=== PATIENT | female | born 1990 | race Hispanic/Latino ===

== ENCOUNTER 2017-08-05 14:09 | Inpatient (IN) | payer MEDICAID ==
--- NOTE | 2017-08-05 14:31 | ED PDOC ---
Lower Extremity Pain/Injury Time Seen by Provider: 08/05/17 14:30 Chief Complaint (Nursing): Lower Extremity Problem/Injury Chief Complaint (Provider): knee pain History Per: Patient Additional Complaint(s): 26 year old female presents to ED with severe left knee pain s/p slip and fall while skiing last Thursday in [place]. Patient was seen by Dr. Chun in his office and was diagnosed with left tibial plateau fracture. Patient presents today to ED with worsening pain to left knee. She has been ambulating with crutches. Past Medical History Reviewed: Historical Data Vital Signs: Last Vital Signs Temp 98.4 F 08/05/17 14:19 Pulse 89 08/05/17 14:19 Resp 20 08/05/17 14:19 BP 122/70 08/05/17 14:19 Pulse Ox 98 08/05/17 14:19 - Medical History PMH: No Chronic Diseases - Surgical History Other surgeries: ear surgery - Family History Family History: States: No Known Family Hx - Living Arrangements Living Arrangements: With Family - Social History Current smoker - smoking cessation education provided: No Alcohol: Social Drugs: Cocaine (last used at 8 am today) - Allergies Allergies/Adverse Reactions: Allergies Allergy/AdvReac Type Severity Reaction Status Date / Time No Known Allergies Allergy Verified 08/05/17 14:46 Wells Criteria for PE - Wells Criteria for Pulmonary Embolism Clinical Signs and Symptoms of DVT: No P.E is #1 Diagnosis, or Equally Likely: No Heart Rate >100: No Immobilization at least 3 days;Surgery previous 4 weeks: No Previous, objectively diagnosed PE or DVT: No Hemoptysis: No Malignancy w/treatment within 6 months, or palliative: No Total Score: 0 Review of Systems ROS Statement: Except As Marked, All Systems Reviewed And Found Negative Musculoskeletal: Positive for: Other (left knee pain) Physical Exam - Reviewed Nursing Documentation Reviewed: Yes Vital Signs Reviewed: Yes - Physical Exam Appears: Positive for: Well, Non-toxic, No Acute Distress Skin: Negative for: Rash Eye Exam: Positive for: Normal appearance Cardiovascular/Chest: Positive for: Regular Rate, Rhythm Respiratory: Positive for: Normal Breath Sounds Extremity: Positive for: Other (Swelling and tenderness to left patellar region with decreased range of motion of left knee, no calf swelling or tenderness, normal distal sensation left lower extremity) Neurologic/Psych: Positive for: Alert, Oriented - Laboratory Results Result Diagrams: 08/05/17 15:40 Urine POC: Negative - ECG O2 Sat by Pulse Oximetry: 98 Pulse Ox Interpretation: Normal - Other Rad Bedside chest X-Ray: Interpreted by Me, Viewed By Me X-Ray Interpretation: no acute finding Medical Decision Making Medical Decision Makin-year-old female with left tibial plateau fracture Plan: CXR EKG CBC CMP PT/PTT IVF Case was discussed with Dr. Chun, patient's orthopedist. Patient will be admitted and taken to the OR for patellar fracture repair. Patient is aware of and agrees with admission. Patient admits to use of cocaine at 8 am this morning. She denies use of any other drugs or etoh in the last 24 hours. Anesthesiologist at bedside for pre- op clearance. Patient is stable for transfer to OR. Disposition - Clinical Impression Clinical Impression: Fracture of left tibial plateau - Patient ED Disposition Is Patient to be Admitted: Yes - Disposition Disposition Time: 16:03 Condition: STABLE Forms: [facility] (German) - Pt Status Changed To: Hospital Disposition Of: Observation - POA Present On Arrival: None
[2017-08-05] MEDS ORDERED: Sodium Chloride 0.9% 1,000 ML IV STA (14:47)
--- NOTE | 2017-08-05 15:13 | RAD ---
HISTORY: admit COMPARISON: No prior. FINDINGS: LUNGS: No active pulmonary disease. PLEURA: No significant pleural effusion identified, no pneumothorax apparent. CARDIOVASCULAR: Normal. OSSEOUS STRUCTURES: No significant abnormalities. VISUALIZED UPPER ABDOMEN: Normal. OTHER FINDINGS: None. IMPRESSION: No active disease.
[2017-08-05 15:35] LABS: BARBITURATES, UR NEGATIVE (NEGATIVE); BENZODIAZEPINES, UR NEGATIVE (NEGATIVE); OPIATES, UR NEGATIVE (NEGATIVE); PHENCYCLIDINE, UR NEGATIVE (NEGATIVE)
[2017-08-05] MEDS ORDERED: Bupivacaine 0.5% Inj(30mL) ONE (15:41)
[2017-08-05] MEDS ORDERED: Lidocaine 1% Inj (20ml) ONE (15:41)
[2017-08-05 15:51] LABS: BASO # 0.1 K/uL (0.0-0.2); BASO % 0.7 % (0.0-2.0); EOS # 0.1 K/uL (0.0-0.7); EOS % 1.2 % (0.0-4.0); HEMOGLOBIN 13.9 g/dL (12.0-16.0); LYMPH # 2.2 K/uL (1.0-4.3); LYMPH % 29.9 % (20.0-40.0); MEAN CELL VOLUME 95.2 fl (81.0-99.0); MEAN CORPUSCULAR HEMOGLOBIN 32.6 pg (27.0-31.0); MEAN CORPUSCULAR HGB CONC 34.3 g/dL (33.0-37.0); MEAN PLATELET VOLUME 8.6 fl (7.2-11.7); MONO # 0.6 K/uL (0.0-0.8); MONO % 8.3 % (0.0-10.0); NEUT # 4.5 K/uL (1.8-7.0); NEUT % 59.9 % (50.0-75.0); RBC 4.25 Mil/uL (3.80-5.20); RED CELL DISTRIBUTION WIDTH 12.9 % (11.5-14.5); WHITE BLOOD COUNT 7.5 K/uL (4.8-10.8)
[2017-08-05] MEDS ORDERED: Succinylcholine 200 mg/10 ml Inj IV ONE (15:56)
[2017-08-05 16:03] LABS: INR 1.1 (0.9-1.2); PARTIAL THROMBOPLASTIN TIME 32.7 Seconds (25.6-37.1); PROTHROMBIN TIME 11.7 Seconds (9.8-13.1)
[2017-08-05] MEDS ORDERED: Midazolam 2 MG/2 ML VIAL ONE (16:11)
[2017-08-05] MEDS ORDERED: Morphine 1 mg/ml preservative-free Inj(Duramorph) ONE (16:11)
[2017-08-05] MEDS ORDERED: Phenylephrine 10 mg/ml Inj ONE (16:12)
[2017-08-05] MEDS ORDERED: Propofol 10 mg/ml 2,000 MG/200 ML VIAL ONE (16:13)
[2017-08-05] MEDS ORDERED: Lactated Ringer's 1,000 ML IV ONE ×2 (16:30→18:00)
[2017-08-05 16:31] LABS: ALB/GLOB RATIO 1.2 (1.0-2.1); ALBUMIN 4.3 g/dL (3.5-5.0); ALT/SGPT 29 U/L (9-52); AST/SGOT 22 U/L (14-36); BLOOD UREA NITROGEN 20 mg/dl (7-17); CALCIUM 9.5 mg/dL (8.4-10.2); GFR AFRICAN-AMERICAN > 60; GFR NON-AFRICAN AMERICAN > 60
[2017-08-05] MEDS ORDERED: Lidocaine 1% 5ml Abboject IV ONE (16:59)
[2017-08-05] MEDS ORDERED: Propofol 10 mg/ml Inj (20 ML) ONE (17:24)
[2017-08-05] MEDS ORDERED: ePHEDrine 50 mg/ml Inj ONE (17:34)
[2017-08-05] MEDS ORDERED: Ropivacaine 0.5% 30ML IV ONE (18:13)
[2017-08-05] MEDS ORDERED: Liquid Adhesive TOP ONE (19:36)
--- NOTE | 2017-08-05 19:52 | PCM.SURG1 ---
Surgeon's Initial Post Op Note - Surgeon's Notes Surgeon: Tatyana Chun MD Circuit Board Drafter: Live Tejada PA-C; Carin Urena DPM Type of Anesthesia: Spinal, IV Sedation Pre-Operative Diagnosis: Left knee lateral meniscus tear and lateral tibial plateau fracture Operative Findings: see op report Post-Operative Diagnosis: same as pre-op dx Operation Performed: Left knee arthroscopy, repair of lateral meniscus tear, synovectomy, arthroscopic assisted ORIF of lateral tib plateau fracture with screw fixation Specimen/Specimens Removed: none Estimated Blood Loss: EBL {In ML}: 15 Date of Surgery/Procedure: 08/05/17 Time of Surgery/Procedure: 17:30
[2017-08-05] MEDS ORDERED: DiphenhydrAMINE 50 mg/ml Inj IVP PRN (19:53)
[2017-08-05] MEDS ORDERED: ceFAZolin 1 GM in Sodium Chloride 0.9% 100 ML IVPB ONE (23:30)
[2017-08-06] MEDS: oxyCODONE 5 mg Immediate Release Tab PO PRN ×3 (00:23→16:07)
--- NOTE | 2017-08-06 00:26 | CP.PCM.HP ---
History of Present Illness - History of Present Illness History of Present Illness: This is a 26 year old female with no significant past medical history who presented to the ED on 08/05/2017 in the early afternoon with severe pain after a slip and fall while skiing last Thursday in [place], [place]. The patient was seen earlier by Dr. Chun in his office and was diagnosed at that time with left tibial plateau fracture. She had been ambulating with crutches before. In the ED, the patient remained hemodynamically stable. CXR unremarkable. Of note she was found positive for cocaine on urine toxicology. Upon further review patient admitted to cocaine use at 8 am this morning. She went to the OR today for meniscal repair which was performed by Dr. Chun. The procedure was uncomplicated. She is now under hospitalist service overnight on observation for pain control with likely discharge tomorrow morning. Patient c/o pain to her left knee but denies any other problems currently. Denies cp/sob/f/c/n/v/d. Present on Admission - Present on Admission Any Indicators Present on Admission: No Review of Systems - Review of Systems Review of Systems: A 12 point review of systems was conducted and found to be negative other than that in HPI. Past Patient History - Infectious Disease Hx of Infectious Diseases: None - Past Medical History & Family History Past Medical History?: No Past Family History: Reviewed and not pertinent - Past Social History Alcohol: Social Drugs: Cocaine (last used at 8 am today) - ENDOCRINE/METABOLIC Hx Endocrine Disorders: Yes (Hypothyroid) - PSYCHIATRIC Hx Emotional Abuse: No Hx Physical Abuse: No Hx Substance Use: Yes - SURGICAL HISTORY Other/Comment: ear tube - ANESTHESIA Hx Anesthesia: Yes Hx Anesthesia Reactions: No (developed mass) Meds Allergies/Adverse Reactions: Allergies Allergy/AdvReac Type Severity Reaction Status Date / Time No Known Allergies Allergy Verified 08/05/17 14:46 Physical Exam - Additional Findings Additional findings: Physical exam: Constitutional- cooperative, awake, alert Head- NCAT, PERRL Eye- PERRL, EOMI ENT- normal exam, MMM. Neck- normal inspection, supple, no JVD Respiratory- CTAB, no wheezes rales rhonchi Cardiovascular- RRR, +S1, +S2 no MRG GI/Abdominal- normal bowel sounds, soft, no mass, no hsm Skin- warm, dry Extremities Exam- normal capillary refill, normal inspection Neurological Exam- alert, awake, oriented Psych- normal mood, normal affect Results - Vital Signs Recent Vital Signs: Last Vital Signs Temp 97.6 F 08/05/17 21:50 Pulse 81 08/05/17 22:05 Resp 20 08/05/17 22:05 BP 99/74 L 08/05/17 22:05 Pulse Ox 98 08/05/17 22:05 - Labs Result Diagrams: 08/05/17 15:40 08/05/17 16:10 Labs: Laboratory Results - last 24 hr 08/05/17 08/05/17 08/05/17 15:07 15:40 15:40 WBC RBC Hgb Hct MCV MCH MCHC RDW Plt Count MPV Neut % (Auto) Lymph % (Auto) [place] % (Auto) Eos % (Auto) Baso % (Auto) Neut # (Auto) Lymph # (Auto) [place] # (Auto) Eos # (Auto) Baso # (Auto) PT 11.7 INR 1.1 APTT 32.7 Sodium Potassium Chloride Carbon Dioxide Anion Gap BUN Creatinine Est GFR ( Amer) Est GFR (Non-Af Amer) Random Glucose Calcium Total Bilirubin AST ALT Alkaline Phosphatase Total Protein Albumin Globulin Albumin/Globulin Ratio Urine Opiates Screen Negative Urine Methadone Screen Negative Ur Barbiturates Screen Negative Ur Phencyclidine Scrn Negative Ur Amphetamines Screen Negative U Benzodiazepines Scrn Negative U Oth Cocaine Metabols Positive H U Cannabinoids Screen Negative Alcohol, Quantitative Blood Type O NEGATIVE Antibody Screen Negative 08/05/17 08/05/17 15:40 16:10 WBC 7.5 RBC 4.25 Hgb 13.9 Hct 40.5 MCV 95.2 MCH 32.6 H MCHC 34.3 RDW 12.9 Plt Count 244 MPV 8.6 Neut % (Auto) 59.9 Lymph % (Auto) 29.9 [place] % (Auto) 8.3 Eos % (Auto) 1.2 Baso % (Auto) 0.7 Neut # (Auto) 4.5 Lymph # (Auto) 2.2 [place] # (Auto) 0.6 Eos # (Auto) 0.1 Baso # (Auto) 0.1 PT INR APTT Sodium 142 Potassium 4.2 Chloride 103 Carbon Dioxide 28 Anion Gap 15 BUN 20 H Creatinine 0.7 Est GFR ( Amer) > 60 Est GFR (Non-Af Amer) > 60 Random Glucose 84 Calcium 9.5 Total Bilirubin 0.5 AST 22 ALT 29 Alkaline Phosphatase 84 Total Protein 7.8 Albumin 4.3 Globulin 3.5 Albumin/Globulin Ratio 1.2 Urine Opiates Screen Urine Methadone Screen Ur Barbiturates Screen Ur Phencyclidine Scrn Ur Amphetamines Screen U Benzodiazepines Scrn U Oth Cocaine Metabols U Cannabinoids Screen Alcohol, Quantitative < 10 Blood Type Antibody Screen Assessment & Plan - Assessment and Plan (Free Text) Plan: ASSESSMENT - s/p left leg lateral meniscal repair and left tibial plateau fracture repair POD #0 - Left leg pain - Hx recent cocaine abuse PLAN - Observation on med/surg overnight - Consultation with Dr. Chun for postop management - Percocet/Oxycodone as per orthopedics for pain management - Regular diet - Colace 100 mg po BID for constipation prevention - Tylenol PRN for mild pain 1-3 - DVT prophylaxis with ASA BID
[2017-08-06] MEDS: Oxycodone/Acetaminophen 5/325 mg Tab PO PRN ×4 (02:06→12:47)
[2017-08-06] MEDS ORDERED: ceFAZolin 1 GM in Sodium Chloride 0.9% 100 ML IVPB ONE (05:30)
[2017-08-06 06:18] VITALS: RESP 20
[2017-08-06 06:40] LABS: BASO % 0.2 % (0.0-2.0); EOS % 0.1 % (0.0-4.0); HEMOGLOBIN 10.7 g/dL (12.0-16.0); LYMPH # 1.4 K/uL (1.0-4.3); LYMPH % 10.6 % (20.0-40.0); MEAN CELL VOLUME 96.3 fl (81.0-99.0); MEAN CORPUSCULAR HEMOGLOBIN 32.2 pg (27.0-31.0); MEAN CORPUSCULAR HGB CONC 33.4 g/dL (33.0-37.0); MEAN PLATELET VOLUME 8.7 fl (7.2-11.7); MONO % 7.7 % (0.0-10.0); NEUT % 81.4 % (50.0-75.0); RBC 3.33 Mil/uL (3.80-5.20)
[2017-08-06 07:05] LABS: WHITE BLOOD COUNT 13.5 K/uL (4.8-10.8)
[2017-08-06 07:57] VITALS: BP 128/75; PULSE 114; TEMP 98.1; O2SAT 96
[2017-08-06 08:16] LABS: BLOOD UREA NITROGEN 14 mg/dl (7-17); CALCIUM 8.5 mg/dL (8.4-10.2); GFR AFRICAN-AMERICAN > 60; GFR NON-AFRICAN AMERICAN > 60
[2017-08-06] MEDS ORDERED: GINGER ROOT 550 MG PO SCH (09:00)
--- NOTE | 2017-08-06 11:22 | RAD ---
PROCEDURE: Left Knee Radiographs. HISTORY: Left knee arthroscopy lateral meniscal repair tibial plateau fracture COMPARISON: None. FINDINGS: BONES: Acceptable postoperative findings following open reduction internal fixation lateral tibial plateau fracture. No evidence of orthopedic hardware failure. JOINTS: Normal. No osteoarthritis. JOINT EFFUSION: None. OTHER FINDINGS: Air within the soft tissues above the femoral condylar region. IMPRESSION: Satisfactory postoperative status.
--- NOTE | 2017-08-06 11:26 | CARD ---
APPROVED REPORT EKG Measurement Heart [id number] <Conclusion> Sinus rhythm with short SC Rightward axis Borderline ECG
--- NOTE | 2017-08-06 13:25 | CP.PCM.PN ---
Subjective - Date & Time of Evaluation Date of Evaluation: 08/06/17 Time of Evaluation: 13:00 - Subjective Subjective: 26 yo f S/P Left knee arthroscopic lat meniscus repair and ORIF lateral tibial plateau fx Pt seen and examined at bedside, comfortable in bed, NAD Pt c/o moderate left knee pain Pt denies any SOB, chest pain, N/V/D, numbness/tingling to LLE Objective - Vital Signs/Intake and Output Vital Signs (last 24 hours): Temp Pulse Resp BP Pulse Ox 98.1 F 114 H 20 128/75 96 08/06/17 09:00 08/06/17 07:56 08/06/17 07:56 08/06/17 07:56 08/06/17 07:56 Intake and Output: 08/06/17 08/06/17 06:59 18:59 Intake Total 300 Balance 300 - Medications Medications: Current Medications Acetaminophen (Tylenol 325mg Tab) 325 mg PO Q4 PRN PRN Reason: pain1-3 Aspirin (Aspirin) 325 mg PO BID [facility] Last Admin: 08/06/17 09:16 Dose: 325 mg Diphenhydramine HCl (Benadryl) 50 mg IVP Q6 PRN PRN Reason: Itching / Pruritus Docusate Sodium (Colace) 100 mg PO BID [facility] Last Admin: 08/06/17 09:14 Dose: 100 mg Hydromorphone HCl (Dilaudid) 1 mg IVP ONCE ONE Stop: 08/06/17 13:26 Ondansetron HCl (Zofran Inj) 4 mg IVP Q6 PRN PRN Reason: Nausea/Vomiting Last Admin: 08/05/17 23:44 Dose: 4 mg Oxycodone HCl (Oxycodone Immediate Release Tab) 5 mg PO Q6 PRN PRN Reason: pain4-6 Last Admin: 08/06/17 10:07 Dose: 5 mg Oxycodone/Acetaminophen (Percocet 5/325 Mg Tab) 1 tab PO Q4 PRN PRN Reason: For PCEA Breakthrough Pain Stop: 08/08/17 19:54 Last Admin: 08/06/17 09:13 Dose: 1 tab Oxycodone/Acetaminophen (Percocet 5/325 Mg Tab) 2 tab PO Q4 PRN PRN Reason: Pain, severe (8-10) Stop: 08/09/17 05:49 Last Admin: 08/06/17 12:47 Dose: 2 tab - Labs Labs: 08/06/17 05:25 08/06/17 05:25 PT 11.7 Seconds (9.8-13.1) 08/05/17 15:40 INR 1.1 (0.9-1.2) 08/05/17 15:40 APTT 32.7 Seconds (25.6-37.1) 08/05/17 15:40 - Constitutional Appears: Well, No Acute Distress - Respiratory Exam Respiratory Exam: Clear to Ausculation Bilateral, NORMAL BREATHING PATTERN - Cardiovascular Exam Cardiovascular Exam: REGULAR RHYTHM, RRR - Extremities Exam Additional comments: LLE: Knee dressing C/D/I ROM limited due to pain Calves soft and nontender b/l N/V intact distally Distal pulses wnl Active ROM at left ankle Assessment and Plan - Assessment and Plan (Free Text) Assessment: 26 yo f S/P Left knee arthroscopic lat meniscus repair and ORIF lateral tibial plateau fx Plan: Pain Control DVT ppx PT/OT- NWB LLE x 12 wks Incentive Spirometer D/C planning pending PT clearance D/C with pain meds and continue aspirin 325mg daily x 4wks- Rx in chart Pt given rx for left knee oh brace- no flexion >90deg Pt to f/u in office at 10days post op Discussed with Dr. Chun
--- NOTE | 2017-08-06 13:50 | CP.PCM.DIS ---
Provider - Provider Date of Admission: 08/05/17 15:32 Attending physician: Jordan Epperson DO Consults: Orthropedic Consult- Dr. Jacobson Time Spent in preparation of Discharge (in minutes): 30 Diagnosis - Discharge Diagnosis (1) Fracture of left tibial plateau Status: Acute (2) S/P ORIF (open reduction internal fixation) fracture Status: Acute (3) Leukocytosis Status: Acute Comment: likely reactive, s/p surgery Hospital Course - Lab Results Lab Results: Most Recent Lab Values WBC 13.5 K/uL (4.8-10.8) H D 08/06/17 05:25 RBC 3.33 Mil/uL (3.80-5.20) L 08/06/17 05:25 Hgb 10.7 g/dL (12.0-16.0) L D 08/06/17 05:25 Hct 32.1 % (34.0-47.0) L 08/06/17 05:25 MCV 96.3 fl (81.0-99.0) 08/06/17 05:25 MCH 32.2 pg (27.0-31.0) H 08/06/17 05:25 MCHC 33.4 g/dL (33.0-37.0) 08/06/17 05:25 RDW 13.0 % (11.5-14.5) 08/06/17 05:25 Plt Count 193 K/uL (130-400) 08/06/17 05:25 MPV 8.7 fl (7.2-11.7) 08/06/17 05:25 Neut % (Auto) 81.4 % (50.0-75.0) H 08/06/17 05:25 Lymph % (Auto) 10.6 % (20.0-40.0) L 08/06/17 05:25 [place] % (Auto) 7.7 % (0.0-10.0) 08/06/17 05:25 Eos % (Auto) 0.1 % (0.0-4.0) 08/06/17 05:25 Baso % (Auto) 0.2 % (0.0-2.0) 08/06/17 05:25 Neut # (Auto) 11.0 K/uL (1.8-7.0) H 08/06/17 05:25 Lymph # (Auto) 1.4 K/uL (1.0-4.3) 08/06/17 05:25 [place] # (Auto) 1.0 K/uL (0.0-0.8) H 08/06/17 05:25 Eos # (Auto) 0.0 K/uL (0.0-0.7) 08/06/17 05:25 Baso # (Auto) 0.0 K/uL (0.0-0.2) 08/06/17 05:25 PT 11.7 Seconds (9.8-13.1) 08/05/17 15:40 INR 1.1 (0.9-1.2) 08/05/17 15:40 APTT 32.7 Seconds (25.6-37.1) 08/05/17 15:40 Sodium 132 mmol/l (132-148) 08/06/17 05:25 Potassium 3.8 MMOL/L (3.6-5.0) 08/06/17 05:25 Chloride 96 mmol/L (98-107) L 08/06/17 05:25 Carbon Dioxide 30 mmol/L (22-30) 08/06/17 05:25 Anion Gap 10 (10-20) 08/06/17 05:25 BUN 14 mg/dl (7-17) 08/06/17 05:25 Creatinine 0.7 mg/dl (0.7-1.2) 08/06/17 05:25 Est GFR ( Amer) > 60 08/06/17 05:25 Est GFR (Non-Af Amer) > 60 08/06/17 05:25 Random Glucose 114 mg/dL (65-105) H 08/06/17 05:25 Calcium 8.5 mg/dL (8.4-10.2) 08/06/17 05:25 Total Bilirubin 0.5 mg/dl (0.2-1.3) 08/05/17 16:10 AST 22 U/L (14-36) 08/05/17 16:10 ALT 29 U/L (9-52) 08/05/17 16:10 Alkaline Phosphatase 84 U/L (38-126) 08/05/17 16:10 Total Protein 7.8 G/DL (6.3-8.2) 08/05/17 16:10 Albumin 4.3 g/dL (3.5-5.0) 08/05/17 16:10 Globulin 3.5 gm/dL (2.2-3.9) 08/05/17 16:10 Albumin/Globulin Ratio 1.2 (1.0-2.1) 08/05/17 16:10 Urine Opiates Screen Negative (NEGATIVE) 08/05/17 15:07 Urine Methadone Screen Negative (NEGATIVE) 08/05/17 15:07 Ur Barbiturates Screen Negative (NEGATIVE) 08/05/17 15:07 Ur Phencyclidine Scrn Negative (NEGATIVE) 08/05/17 15:07 Ur Amphetamines Screen Negative (NEGATIVE) 08/05/17 15:07 U Benzodiazepines Scrn Negative (NEGATIVE) 08/05/17 15:07 U Oth Cocaine Metabols Positive (NEGATIVE) H 08/05/17 15:07 U Cannabinoids Screen Negative (NEGATIVE) 08/05/17 15:07 Alcohol, Quantitative < 10 mg/dl (0-10) 08/05/17 16:10 Blood Type O NEGATIVE 08/05/17 15:40 Blood Type Confirm O NEGATIVE 08/06/17 11:00 Antibody Screen Negative 08/05/17 15:40 BBK History Checked No verified bt 08/05/17 15:40 - Hospital Course Hospital Course: 26 y.o female with recent history of cocaine use seen in the ED for painful left knee lateral meniscus tear and lateral tibial plateau fracture. Orthopedic was consulted, Dr. Jacobson, and decision was made to bring the patient to OR for left knee arthroscopy, repair of lateral meniscus tear, synovectomy, and arthroscopic assisted ORIF of lateral tibial plateau fracture with screw fixation (DOS: 08/05/17) . Patient is s/p day 1 of surgery. Pain controlled with pain medication. Pt s/p leukocytosis most likely reactive s/p surgery; no clinical signs or symptoms of infection. No abx needed as outpatient. Patient clinically stable and afebrile and decision to be discharge home with wheelchair. Patient to f/u Dr. Jacobson as an outpatient. Discharge Exam - Head Exam Head Exam: ATRAUMATIC, NORMAL INSPECTION, NORMOCEPHALIC - Eye Exam Eye Exam: EOMI, Normal appearance, PERRL Pupil Exam: NORMAL ACCOMODATION - ENT Exam ENT Exam: Mucous Membranes Moist - Neck Exam Neck exam: Full Rom, Normal Inspection - Respiratory Exam Respiratory Exam: Clear to PA & Lateral, NORMAL BREATHING PATTERN, UNREMARKABLE. absent: Rales, Rhonchi, Wheezes, Respiratory Distress, Stridor - Cardiovascular Exam Cardiovascular Exam: REGULAR RHYTHM, +S1, +S2 - GI/Abdominal Exam GI & Abdominal Exam: Normal Bowel Sounds, Unremarkable - Neurological Exam Neurological exam: Alert, Oriented x3 - Psychiatric Exam Psychiatric exam: Normal Affect, Normal Mood - Additional Findings Additional findings: Left dressing clean, dry, intact with immobilizer device intact No hematoma noted, no fluctanance to L LE Temperature WNL Capillary refill time < 3 seconds to digits Patient able to wiggle toes and perform ankle ROM No pain or tenderness with palpation to the calf Discharge Plan - Discharge Medications Prescriptions: Docusate Sodium [Colace] 100 mg PO BID #30 capsule oxyCODONE/Acetaminophen [Percocet 5/325 mg Tab] 1 tab PO Q4 PRN #30 tab PRN Reason: Pain, Severe (8-10) - Follow Up Plan Condition: STABLE Disposition: HOME/ ROUTINE Instructions: Leg Fracture (DC), Operative Knee Arthroscopy (DC), ORIF (DC) Additional Instructions: follow up with dr. jacobson 7-10 days in office pt d/c home with wheelchair rx percocet 5/325 rx colace instructed on use rx aspirin 325 mg daily x 4 weeks and rx left knee brace from ortho will f/u pt/ot in ar pt to be NWB to LLE Referrals: Tatyana Jacobson MD [Staff Provider] -
--- NOTE | 2017-08-06 14:26 | RAD ---
PROCEDURE: Fluoroscopy up to 1 hr. HISTORY: Tibial plateau fracture and COMPARISON: August 05, 2017. 0 TECHNIQUE: Submitted images from the current procedure: 4.0 FINDINGS: Total fluoroscopic time (continuous mode) utilized during the procedure: 192.7 seconds. Total exam DLP: (mGy): 13.38 IMPRESSION: Less than 1 hr fluoroscopic time utilized during performance of the procedure.
--- NOTE | 2017-08-26 21:15 | OP ---
PROCEDURE DATE: 08/05/2017 ATTENDING PHYSICIAN: Tatyana Chun MD MEDICAL ASSISTANT FLOAT: Live Tejada PA-C PREOPERATIVE DIAGNOSES: 1. Left knee lateral tibial plateau fracture. 2. Lateral meniscal tear. 3. Synovitis. POSTOPERATIVE DIAGNOSES: 1. Left knee tricompartmental major synovitis. 2. Depressed lateral tibial plateau fracture. 3. Lateral meniscal tear. 4. Chondral defect of the lateral tibial plateau. 5. Effusion. ANESTHESIA TYPE: General. PROCEDURE: 1. Left knee arthroscopic assisted open reduction and internal fixation lateral tibial plateau fracture. 2. Left knee arthroscopic lateral meniscal repair. 3. Complete synovectomy of the compartment. 4. Chondroplasty of the lateral tibial plateau. 5. Lysis of adhesion. SPECIMENS: None. COMPLICATIONS: None. INDICATIONS: After failing a course of nonoperative therapy, the patient elected to undergo the above procedure. In the office, the risks and possible complications of knee arthroscopy were discussed in detail with the patient. These risks include but are not limited to continued pain, lack of motion, infection, vascular injury, DVT / PE, nerve injury including peroneal nerve dysfunction, reflex sympathetic dystrophy, compartment syndrome, unforeseen medical and/or anesthesia complications, limb loss, and even . The patient expressed an understanding of the risks and possible benefits of the procedure, and is also aware of the alternatives to surgery. An informed consent was obtained, and was checked immediately preop. PROCEDURE: The patient was correctly identified in the holding area and the left knee was marked with the surgeon's initials. The patient was transported to the operating room and placed in the supine position, general anesthesia was obtained. A preoperative orthopedic exam revealed effusion of 2+ range of motion of 3 to 120, slight valgus instability. The lower extremity was prepped and draped in the standard fashion, and the thigh was placed in an arthroscopic leg harding. A well-padded tourniquet was applied to the patient's thigh. Timeout was completed confirming the correct operative site. Esmarch was used to exsanguinate the leg and tourniquet was inflated to 300 mmHg. A standard anterolateral viewing portals were made with a #11 blade after subdermal 1% lidocaine with epinephrine injection. The knee was distended with normal saline and epinephrine in a 1:1,000,000 mixture, at an initial pressure of 35 mmHg. The arthroscope was inserted from the anterolateral portal and moved into the medial compartment. Next, the anteromedial working portal was made with spinal needle localization. The arthroscopic probe was inserted, and all compartments of the knee were sequentially visualized. FINDINGS: Arthroscopic examination of the knee revealed: 1. Depressed lateral tibial plateau fracture. 2. Peripheral body tear of lateral meniscus. 3. and lateral tibial plateau. 4. Adhesions. 5. Major synovitis of all three compartments. The anterior cruciate ligament and posterior cruciate ligament were intact. Due to peripheral nature of lateral meniscal tear, decision was made to proceed with lateral meniscal repair. Using the motorized shaver and meniscal rasp, the peripheral torn edges of meniscal tear were debrided to promote bleeding and increase chance of healing. For fixation, we used Linvatec and total of 6 implants were used to achieved stability and fixation. Afterwards, the meniscus was probed and noted to stable without any notable excursion. The motorized shaver was used to mechanically debride the loose, fibrillated and fragmented chondral edges of this site was made lateral tibial plateau to a stable border. Extreme care was taken to not disrupt the adjacent chondral surface. The edges of injured chondral area were probed to ensure stability after the shaver was withdrawn from the knee. The motorized shaver was used to perform a synovectomy of the compartments are medial, lateral and patellofemoral. The hypertrophic synovium was resected with minimal bleeding. No synovial incarceration was noted after synovectomy when the knee was put through a full passive range of motion. Due to injuries to the patellofemoral region resulting in organized scar and suprapatellar adhesions, a decision was made to perform and anterior interval release to decrease the patellofemoral joint reaction force and relieve pressures over the patella and trochlea. The synovectomy was carried over to the suprapatellar pouch and an anterior interval release was performed over the anterior compartment and the suprapatellar pouch with the motorized shaver. The anterior fat pad was released and debulked during this procedure. The inflow was shut off and the area checked for hemostasis. Small bleeders were coagulated with the radiofrequency device. For depressed lateral tibial fracture procedure with arthroscopic assisted open reduction and internal fixation. A small 3 cm incision lateral to the tibial tubercle. Skin dissection was taken down to the bone, a drill hole was made at the fracture site using a bone scan the depressed articular surface was reduced, it was confirmed with the arthroscope. For fixation, we used 3 cannulated synthesis raft 4.5 mm screws and the defect was also supplemented with calcium phosphate cement and bone chips. The final radiographs were taken and are showing adequate fracture reduction and alignment. Afterwards all loose bodies removed and skin was closed in a usual manner. Post operatively, the patient will be nonweightbearing status for 10 to 12 weeks with crutches and will utilize my appropriate post arthroscopy protected rehab protocol. The patient will be started on straight leg raising and quadriceps setting exercises in the recovery room. I have prescribed a continuous passive motion machine to be used by the patient at home on a daily basis to optimize postoperative range of motion and promote healing. We are going to follow up the patient in the office in 7 to 10 days. During this procedure, I was assisted by Live Tejada PA-C, who assisted in positioning the patient on the operating room table as well as transferring the patient from the operating room table to the recovery room stretcher. In addition, Live Tejada PA-C, assisted me during the actual operative procedure by positioning the patient's extremity to allow for easier arthroscopic access to all areas of the joint. The presence of Live Tejada PA-C, as my operative assistant program director, was medically necessary to ensure the utmost safety of the patient in the pre, intra-, and postoperative periods. Tatyana Chun MD
== END 2017-08-06 18:36 | disposition home or self-care (01) | DRG 218 ==
LOC: H.ER 14:09 → H.ERHOLD 15:32 → H.MEDSURG1 23:17
PROVIDERS: ADMIT Internal Medicine; ATTEND Internal Medicine
PROC: 0SBD4ZZ Excision of Left Knee Joint, Percutaneous Endoscopic Approach (ICD-10-PCS; 2017-08-05)
PROC: 0QSH04Z Reposition Left Tibia with Internal Fixation Device, Open Approach (ICD-10-PCS; principal; 2017-08-05 16:15)
PROC: 0SQD4ZZ Repair Left Knee Joint, Percutaneous Endoscopic Approach (ICD-10-PCS; 2017-08-05 16:15)
DX: S82.142A Displaced bicondylar fracture of left tibia, initial encounter for closed fracture (principal); F14.90 Cocaine use, unspecified, uncomplicated; S83.282A Other tear of lateral meniscus, current injury, left knee, initial encounter; M65.862 Other synovitis and tenosynovitis, left lower leg; D72.828 Other elevated white blood cell count; E03.9 Hypothyroidism, unspecified; W01.0XXA Fall on same level from slipping, tripping and stumbling without subsequent striking against object, initial encounter; V00.321A Fall from snow-skis, initial encounter; Y93.23 Activity, snow (alpine) (downhill) skiing, snowboarding, sledding, tobogganing and snow tubing